=== PATIENT | female | born 1955 | race Caucasian/White ===

== ENCOUNTER 2019-08-23 13:55 | Outpatient (CLI) | payer OTHER | END 2019-08-23 23:59 | disposition short-term general hospital (02) | LOC: EMS 13:55 | PROVIDERS: ATTEND Surgery | DX: R56.9 Unspecified convulsions (principal); R19.7 Diarrhea, unspecified | CPT/HCPCS: A0425; A0429 ==

== ENCOUNTER 2020-09-30 04:31 | Outpatient (CLI) | payer OTHER | END 2020-09-30 04:32 | disposition critical access hospital (66) | LOC: EMS 04:31 | DX: R56.9 Unspecified convulsions (principal) | CPT/HCPCS: A0425; A0429 ==

== ENCOUNTER 2020-09-30 04:57 | Emergency (ER) | payer OTHER ==
--- NOTE | 2020-09-30 05:23 | ED Physician Documentation ---
PD HPI SEIZURE - Stated complaint Stated Complaint: POSS SEIZURE - Chief complaint Chief Complaint: Neuro - History obtained from History obtained from: Patient, EMS - History of Present Illness Timing - onset: Today Witnessed: Witnessed Number of seizures: Multiple, Lasted minutes Description of seizure activity: Generalized, Tonic clonic, Incontinent Injury during seizure: None Associated symptoms: None History of seizures: Other (has had one seizure previously last year associated with Takotsubo's cardiomyopathy) Contributing factors: Other (stress of a dying dog). No: Off meds, Out of meds, Changed meds, Low blood sugar, Head injury, Substance abuse, EtOH withdrawal, Benzo withdrawal, Overdose, Fever, Sleep deprivation Similar symptoms before: Diagnosis (seizure isolated) Recently seen: Other (The patient has had a dental cleaning in the past week.) - Additional information Additional information: Previously well 64-year-old female was in bed this evening when her heard an unusual noise and came to investigate found her to be seizing. He was able to get her onto the ground she was incontinent medics arrived and witnessed a second seizure. The seizure they witnessed lasted less than 1 minute. The patient has no recollection of the seizures. She remembers going to bed at 9 or 10:00 at night and the next thing she remembers is medics in her house. She states that she feels fine right now just wants to go home. She denies any current or recent illness. She has had a prior incident with a seizure last year and at that time her found her to be not breathing and without a pulse. He performed CPR and when fire department arrived on the scene they also found pulseless apneic female and continued CPR about the time they were getting ready to hookup the AED she became combative. She was then transferred to [facility] in [place] where she was eventually diagnosed with Takotsubo's cardiomyopathy. A specific explanation for seizure never manifested. She has had prior bovine aortic valve replacement in 2016 for bicuspid aortic valve. Review of Systems Constitutional: denies: Fever, Chills, Myalgias Eyes: denies: Decreased vision Ears: denies: Ear pain Nose: denies: Rhinorrhea / runny nose, Congestion Throat: denies: Dental pain / toothache, Sore throat Cardiac: denies: Chest pain / pressure, Palpitations Respiratory: denies: Dyspnea, Cough GI: denies: Abdominal Pain, Nausea, Vomiting, Constipation, Diarrhea : denies: Dysuria, Frequency Skin: denies: Rash Musculoskeletal: denies: Neck pain, Back pain, Extremity pain, Joint pain Neurologic: reports: Seizure. denies: Generalized weakness, Focal weakness, Numbness, Difficulty speaking, Headache, Head injury, LOC Psychiatric: denies: Depressed PD ED PE NORMAL - Vitals Vital signs reviewed: Yes (normal ) - General General: Alert and oriented X 3, No acute distress, Well developed/nourished - HEENT HEENT: Atraumatic, PERRL, EOMI - Neck Neck: Supple, no meningeal sign, No bony TTP - Cardiac Cardiac: RRR, Other (2/6 holosytolic murmer with end systolic click at LSB) - Respiratory Respiratory: No respiratory distress, Clear bilaterally - Abdomen Abdomen: Normal bowel sounds, Soft, Non tender, Non distended, No organomegaly - Back Back: No CVA TTP, No spinal TTP - Derm Derm: Normal color, Warm and dry, No rash - Extremities Extremities: No deformity, No edema - Neuro Neuro: Alert and oriented X 3, lobsterman 2-12 intact, No motor deficit, No sensory deficit, Normal speech Eye Opening: Spontaneous Motor: Obeys Commands Verbal: Oriented GCS Score: 15 - Psych Psych: Normal mood, Normal affect Results - Vitals Vitals: Vital Signs - 24 hr 09/30/20 05:06 Temperature 36.6 C Heart Rate 93 Respiratory 18 Rate Blood Pressure 115/69 O2 Saturation 100 Oxygen O2 Source Room air - EKG (time done) 0523 Rate: Rate (enter#) (83) Rhythm: NSR [place]: Normal Intervals: Normal [place] QRS: Normal Ischemia: Normal ST segments Compare to prior EKG: Old EKG unavailable Computer interpretation: Agree with computer
[2020-09-30 06:11] LABS: BASOPHILS % (AUTO) 0.4 %; EOSINOPHILS % (AUTO) 0.3 %; HCT - HEMATOCRIT 37.3 % (37.0-47.0); HGB - HEMOGLOBIN 11.8 g/dL (12.0-16.0); LYMPHOCYTES # (AUTO) 0.7 10^3/uL (1.5-3.5); LYMPHOCYTES % (AUTO) 8.7 %; MEAN CORPUSCULAR HEMOGLOBIN 25.5 pg (27.0-31.0); MEAN CORPUSCULAR HGB CONC 31.6 g/dL (32.0-36.0); MEAN CORPUSCULAR VOLUME 80.6 fL (81.0-99.0); MEAN PLATELET VOLUME 10.2 fL (7.9-10.8); MONOCYTES # (AUTO) 0.5 10^3/uL (0.0-1.0); MONOCYTES % (AUTO) 5.9 %; NEUTROPHILS # (AUTO) 6.4 10^3/uL (1.5-6.6); NEUTROPHILS % (AUTO) 84.4 %; PLT - PLATELET COUNT 171 10^3/uL (130-450); RED BLOOD COUNT 4.63 10^6/uL (4.20-5.40); RED CELL DISTRIBUTION WIDTH 14.6 % (12.0-15.0); WHITE BLOOD COUNT 7.6 x10^3/uL (4.8-10.8)
[2020-09-30 06:12] LABS: MUDS CUTOFF CONCENTRATIONS CUTOFF CONC BELOW:
[2020-09-30 06:14] LABS: BILIRUBIN,URINE NEGATIVE (NEGATIVE); GLUCOSE, URINE (UA) NEGATIVE (NEGATIVE); KETONES,URINE (UA) NEGATIVE (NEGATIVE); LEUKOCYTE ESTERASE, URINE NEGATIVE (NEGATIVE); NITRITE,URINE NEGATIVE (NEGATIVE); OCCULT BLOOD,URINE NEGATIVE (NEGATIVE); PH,URINE 7.5 PH (5.0-7.5); PROTEIN,URINE NEGATIVE (NEGATIVE); UROBILINOGEN,URINE 0.2 (NORMAL) E.U./dL (NORMAL)
[2020-09-30 06:18] LABS: CLARITY,URINE CLEAR (CLEAR)
[2020-09-30] MEDS ORDERED: LORazepam 2 MG/ML VIAL ONE ×2 (06:19→06:24)
[2020-09-30 06:24] LABS: ALBUMIN 4.4 g/dL (3.2-5.5); ALBUMIN/GLOBULIN RATIO 1.7 (1.0-2.2); BILIRUBIN,TOTAL 0.5 mg/dL (0.2-1.0); CALCIUM 8.9 mg/dL (8.5-10.3); CREATININE 0.7 mg/dL (0.4-1.0); POTASSIUM 3.6 mmol/L (3.5-5.0)
[2020-09-30 06:26] LABS: AMPHETAMINE SCREEN,URINE NEGATIVE (NEGATIVE); BARBITURATE SCREEN,UR NEGATIVE (NEGATIVE); BENZODIAZEPINES SCREEN, URINE NEGATIVE (NEGATIVE); COCAINE SCREEN URINE NEGATIVE (NEGATIVE); METHADONE SCREEN, URINE NEGATIVE (NEGATIVE); METHAMPHETAMINES SCREEN, URINE NEGATIVE (NEGATIVE); OPIATE SCREEN, URINE NEGATIVE (NEGATIVE); OXYCODONE SCREEN, URINE NEGATIVE (NEGATIVE); PROPOXYPHENE SCREEN, URINE NEGATIVE (NEGATIVE); THC CANNABINOID SCREEN, URINE POSITIVE (NEGATIVE); TRICYCLIC ANTIDEPRESSANT,URINE NEGATIVE (NEGATIVE)
[2020-09-30] MEDS ORDERED: levETIRAcetam INJ 500 MG in SODIUM CHLORIDE 0.9% 100ML 100 ML IV STA (06:34)
[2020-09-30] MEDS ORDERED: SODIUM CHLORIDE 0.9% 1,000 ML IV STA ×2 (06:47→13:58)
--- NOTE | 2020-09-30 06:55 | ED Physician Documentation ---
ED Addendum - Addendum Addendum: The patient had a recurrent seizure here in the ER. It was preceded with her heart rate going faster into the mid 100s as she was on the heart monitor. The seizure then started and was generalized. She already had an IV in place and the seizure was still ongoing at about a minute and the patient was given IV Ativan. Seizure stopped within 30 seconds or so so unclear whether was stopping anyway versus the lorazepam. She was breathing with a palpable pulse postictal. It took several minutes for her to start moving around and was restless. She is not coherent to follow commands so four-point soft restraints were placed to keep her from harming herself on the bed or pulling the IV. Seizure pads were in place. I talked with the and this is apparently new onset seizures. There have been question of some with a CPR episode a year ago. He states she had had some foaming at the mouth and tensing before collapsing so it did not seem like a true seizure a more a cardiopulmonary arrest. He states it was not evaluated as seizure. The patient is not a drinker. Medication rubio the states she had increased her sertraline recently and had been feeling very anxious without good explanation the last week or 2. No other change in medicines. At this point with recurring seizure without good explanation. Head CT was normal. Metabolic so far is appearing normal. No infectious symptoms. At this point think she would need further evaluation and hospitalization and would be more suited at a place with neurology and capability for EEG etc. 09/30/20 06:51
[2020-09-30 08:24] LABS: B. PARAPERTUSSIS- RESP PCR PAN NOT DETECTED; B. PERTUSSIS- RESP PCR PANEL NOT DETECTED; C. PNEUMONIAE- RESP PCR PANEL NOT DETECTED; CORONAVIRUS 229E-RESP PCR NOT DETECTED; CORONAVIRUS HKU1-RESP PCR NOT DETECTED; CORONAVIRUS NL63-RESP PCR NOT DETECTED; CORONAVIRUS OC43-RESP PCR NOT DETECTED; HUMAN METAPNEUMOVIRUS NOT DETECTED; INFLUENZA A- RESP PCR PANEL NOT DETECTED; INFLUENZA B - RESP PCR PANEL NOT DETECTED; M. PNEUMONIAE- RESP PCR PANEL NOT DETECTED; PARAINFLUENZA VIRUS 1 NOT DETECTED; PARAINFLUENZA VIRUS 2 NOT DETECTED; PARAINFLUENZA VIRUS 3 NOT DETECTED; PARAINFLUENZA VIRUS 4 NOT DETECTED; RHINOVIRUS/ENTEROVIRUS NOT DETECTED; RSV- RESP PCR PANEL NOT DETECTED; SARS-CoV-2 -RESP PCR PANEL NOT DETECTED
--- NOTE | 2020-09-30 10:40 | CT Report ---
PROCEDURE: HEAD WO INDICATIONS: seizure TECHNIQUE: Noncontrast 4.5 mm thick angled axial sections acquired from the foramen magnum to the vertex. For r adiation dose reduction, the following was used: automated exposure control, adjustment of mA and/or kV according to patient size. COMPARISON: None. FINDINGS: Image quality: Excellent. CSF spaces: Basal cisterns are patent. No extra-axial fluid collections. Ventricles are normal in size and shape. Brain: No midline shift. No intracranial masses or hemorrhage. Morris-white matter interface is norm al. Skull and face: Calvarium and visualized facial bones are intact, without suspicious lesions. Sinuses: Visualized sinuses and mastoids are clear. IMPRESSION: 1. No acute intracranial process. The above findings are concordant with preliminary report. Reviewed by: Yanelis Polk MD on 09/30/2020 10:38 AM PDT Approved by: Yanelis Polk MD on 09/30/2020 10:38 AM PDT Station ID: [id number]
--- NOTE | 2020-09-30 10:43 | XRAY Report ---
PROCEDURE: Chest 1 View X-Ray INDICATIONS: chest pain TECHNIQUE: One view of the chest was acquired. COMPARISON: None FINDINGS: Surgical changes and devices: Sternal wires are present. Lungs and pleura: No pleural effusions or pneumothorax. Ill-defined rounded opacities noted overlyin g the lateral aspect of the right upper lobe. Lungs are hyperexpanded suggestive COPD. Mediastinum: Mediastinal contours appear normal. Heart size is normal. Bones and chest wall: No suspicious bony lesions. Overlying soft tissues appear unremarkable. IMPRESSION: 1.Opacity overlying the peripheral right upper lobe. No prior exams are available for comparison. Fur ther evaluation with CT is recommended, as mass lesion cannot be excluded. The above findings are concordant with preliminary report. Reviewed by: Yanelis Polk MD on 09/30/2020 10:41 AM PDT Approved by: Yanelis Polk MD on 09/30/2020 10:41 AM PDT Station ID: [id number]
--- NOTE | 2020-09-30 13:58 | MRI Report ---
PROCEDURE: Brain W/O INDICATIONS: NEW ONSET SEIZURES TECHNIQUE: Noncontrast axial T1 spin echo, axial T2 fast spin echo, sagittal and axial FLAIR, coronal T2 fast sp in echo, axial gradient echo, axial diffusion and ADC through the brain. COMPARISON: CT head 09/29/2020 FINDINGS: Image quality: Motion is present on multiple sequences, limiting areas of fine detail evaluation. CSF Spaces: Basal cisterns are patent. No extra-axial fluid collections. Ventricles are normal in size and shape. Brain: No intracranial masses or hemorrhage. Morris/white matter interface is normal. Brainstem appe ars normal. Diffusion-weighted images demonstrate no acute ischemic insult. No chronic ischemic ins ults. Normal intravascular flow voids are present. Skull and face: Calvarium has normal marrow signal. Orbits appear normal. Sinuses: Sinuses and mastoids are clear. IMPRESSION: 1. No acute intracranial process. Reviewed by: Yanelis Polk MD on 09/30/2020 1:57 PM PDT Approved by: Yanelis Polk MD on 09/30/2020 1:57 PM PDT Station ID: [id number]
[2020-09-30 14:21] VITALS: BP 106/62
== END 2020-09-30 15:20 | disposition short-term general hospital (02) ==
LOC: EDBD → EDUNIT# → ED 04:57
DX: R56.9 Unspecified convulsions (principal); R45.1 Restlessness and agitation; Z20.822 Contact with and (suspected) exposure to COVID-19; Z95.4 Presence of other heart-valve replacement; Z95.0 Presence of cardiac pacemaker; Z78.1 Physical restraint status
CPT/HCPCS: 0202U; 36415; 70450; 70551; 71045; 80053; 80306; 81003; 83605; 83690; 83735; 85025; 93005; 96361; 96365; 99283; 99285; 81001; 87086

== ENCOUNTER 2020-11-15 06:52 | Outpatient (CLI) | payer OTHER | END 2020-11-15 06:53 | disposition EMS.NT | LOC: EMS 06:52 | DX: R56.9 Unspecified convulsions (principal) ==

== ENCOUNTER 2020-11-23 05:31 | Outpatient (CLI) | payer OTHER | END 2020-11-23 05:32 | disposition short-term general hospital (02) | LOC: EMS 05:31 | DX: R56.9 Unspecified convulsions (principal); R40.4 Transient alteration of awareness | CPT/HCPCS: A0425; A0427 ==